=== PATIENT | female | born 1975 | race Caucasian/White ===

== ENCOUNTER → 2017-10-06 | Outpatient (CLI) | payer OTHER ==
--- NOTE | 2017-10-08 07:55 | MAMMOGRAPHY REPORT ---
BILATERAL DIGITAL SCREENING MAMMOGRAM TOMOSYNTHESIS WITH CAD: 10/06/2017 CLINICAL HISTORY: Routine screening. Patient has no complaints. TECHNIQUE: Breast tomosynthesis in addition to standard 2D mammography was performed. Current study was also evaluated with a Computer Aided Detection (CAD) system. COMPARISON: Comparison is made to exams dated: 11/16/2013 ultrasound, 11/16/2013 mammogram, and 014 mammogram - [facility]. BREAST COMPOSITION: The tissue of both breasts is extremely dense, which lowers the sensitivity of m ammography. FINDINGS: There is a 12 mm partially circumscribed and obscured mass in the 12:00 far posterior left breast, and possible adjacent area of architectural distortion, which could simply represent normal overlapping tissue. Additional spot compression tomosynthesis views and possible ultrasound are milton mmended. No other suspicious mass, architectural distortion or cluster of microcalcifications is seen. IMPRESSION: ACR BI-RADS CATEGORY 0: INCOMPLETE EVALUATION: NEED ADDITIONAL IMAGING EVALUATION The 12 mm partially circumscribed and obscured mass in the 12:00 far posterior left breast and possib le adjacent area of architectural distortion need additional imaging evaluation. The patient will be called to schedule an appointment. Approximately 10% of breast cancers are not detected with mammography. A negative mammographic report should not delay biopsy if a clinically suggestive mass is present. Chantelle Marsh M.D. ay/:10/06/2017 16:15:05 Sports Medicine Trainer: Muna ADAIR)(Tre), [facility] letter sent: Addl Imaging 0 BI-RADS Code: ACR BI-RADS Category 0: Incomplete Evaluation: Need Additional Imaging Evaluation
== END | disposition home or self-care (01) ==
LOC: C.MAMM 09:23
PROVIDERS: ATTEND Obstetrics & Gynecology
DX: Z12.31 Encounter for screening mammogram for malignant neoplasm of breast (principal); N63.20 Unspecified lump in the left breast, unspecified quadrant

== ENCOUNTER → 2017-10-15 | Outpatient (CLI) | payer OTHER ==
--- NOTE | 2017-10-15 14:55 | MAMMOGRAPHY REPORT ---
UNILATERAL LEFT DIGITAL DIAGNOSTIC MAMMOGRAM TOMOSYNTHESIS AND TARGETED LEFT ULTRASOUND: 10/15/2017 CLINICAL HISTORY: Callback from screening mammogram for possible left breast architectural distortion and left breast mass. Family history of breast cancer in her mother who had a malignant Phyllodes t umor. TECHNIQUE: Breast tomosynthesis in addition to standard 2D mammography was performed. Spot compress ion left CC and MLO 2D and tomosynthesis images were obtained. COMPARISON: Comparison is made to exams dated: 10/06/2017 mammogram, 11/16/2013 ultrasound, 11/16/2013 mammogram, and 11/10/2013 mammogram - [facility]. BREAST COMPOSITION: The tissue of the left breast is extremely dense, which lowers the sensitivity o f mammography. FINDINGS: Spot compression views demonstrate a persistent low-density oval partially circumscribed an d partially obscured 15 mm mass within the left superior breast at approximately 12:00 posteriorly. The previously described area of questionable architectural distortion in the adjacent breast on the MLO view does not persist on the additional views, with the tissue in this region having the appearan ce of normal fibroglandular tissue. Targeted ultrasound was performed of the left 11 to 1:00 breast in the region of the mammographic mas s. The background parenchymal echotexture is heterogeneous. In the left breast at 11:00, 7 cm from the nipple, there is a circumscribed anechoic mass with a few thin internal septations which measures 11 x 6 x 10 mm, which has the appearance of a benign cyst. Another adjacent smaller benign cyst wit h a thin internal septation measuring 5 mm is seen, as well as an anechoic 6 mm benign simple cyst in the left 11:00 breast, 4 cm from the nipple. The dominant cyst in the left 11:00 breast was thought to possibly correspond with the mammographic mass although was more anterior than expected for the m ammographic finding. A BB was placed on the skin at the site of this mass and repeat left CC and MLO tomosynthesis images were obtained. The repeat images show that the BB is located near the mass on both views although is a few centimeters anterior to the mass and therefore may or may not correlate. No clear sonographic correlate for the mammographic mass is seen. The mass is probably benign given the circumscribed margins, however, given that a corresponding cyst is not clearly seen on ultrasound the mass remains indeterminant for a solid mass. Given that the p atient has a strong family history of breast cancer including her mother who had a malignant Phyllode s tumor, recommend further evaluation with bilateral breast MRI. IMPRESSION: ACR BI-RADS CATEGORY 0: INCOMPLETE EVALUATION: NEED ADDITIONAL IMAGING EVALUATION, LINETTE ETED ULTRASOUND ACR BI-RADS CATEGORY 0: INCOMPLETE EVALUATION: NEED ADDITIONAL IMAGING EVALUATION 1. Persistent partially circumscribed 15 mm mass within the left 12:00 posterior breast, with a few cysts seen on ultrasound but a definite sonographic correlate was not evident. Although this may rep resent a cyst or other benign mass, it remains indeterminant and recommend further evaluation with bi lateral breast MRI, especially given the strong family history of breast cancer. 2. The possible architectural distortion seen within the left 12:00 breast has the appearance of nor mal fibroglandular tissue on the tomosynthesis images. This area can also be assessed on breast MRI. The patient has been verbally notified of the results. Approximately 10% of breast cancers are not detected with mammography. A negative mammographic report should not delay biopsy if a clinically suggestive mass is present. Vianney Vlales M.D. ah/:10/15/2017 11:43:54 Weed Eradicator: Kiana Madison, [facility] letter sent: Addl Imaging 0 BI-RADS Code: ACR BI-RADS Category 0: Incomplete Evaluation: Need Additional Imaging Evaluation Ult rasound BI-RADS: ACR BI-RADS Category 0: Incomplete Evaluation: Need Additional Imaging Evaluation
== END | disposition home or self-care (01) ==
LOC: C.MAMM 10:51
PROVIDERS: ATTEND Obstetrics & Gynecology
DX: N63.20 Unspecified lump in the left breast, unspecified quadrant (principal); N60.02 Solitary cyst of left breast

== ENCOUNTER → 2017-10-28 | Outpatient (CLI) | payer OTHER ==
[~2017-10-28] MED LIST: GADAVIST IV PRN
--- NOTE | 2017-10-29 12:41 | MAMMOGRAPHY REPORT ---
BREAST MRI OF BOTH BREASTS : 10/28/2017 CLINICAL HISTORY: Partially circumscribed mass seen within the left superior breast on recent diagnos tic workup, with a few cysts seen on ultrasound but no clear sonographic correlate was seen. Strong family history of breast cancer. COMPARISON: Comparison is made to exams dated: 10/15/2017 mammogram, 10/06/2017 mammogram, 11/16/2013 u ltrasound, 11/16/2013 mammogram, and 11/10/2013 mammogram - [facility]. Technique: The patient was placed prone in a dedicated breast imaging coil. Precontrast axial T1-snow ghted, axial T2-weighted fat saturation, and axial T1-weighted fat saturation images were obtained. After the administration of 7 mL of Gadavist IV contrast, sequential T1-weighted fat saturation image s were obtained. Subtraction images were obtained of the dynamic contrast enhanced sequences, and 3- D reformations were performed. The JETME software was used for kinetic analysis. Findings: There is moderate to marked background parenchymal enhancement involving bilateral breasts, which red uces the sensitivity of the exam. Multiple small T2 hyperintense, nonenhancing masses are seen scatt ered in bilateral breasts, consistent with cysts. There are no suspicious enhancing masses or areas of abnormal non-mass enhancement within the left superior posterior breast in the region of the parti ally circumscribed mass seen on the recent mammograms. One T2 hyperintense, nonenhancing 8 mm mass s een within the left 11:30 breast middle depth is consistent with a cyst, and is felt to correspond wi th the partially circumscribed mammographic mass as well as the cyst seen on the recent ultrasound ex am (series 4 image 18). No suspicious MRI abnormality is seen in the region of the questionable arch itectural distortion within the left superior breast which effaced on the additional spot compression mammographic views; therefore, the finding is benign. In the left superior subareolar breast middle depth is an oval enhancing 6 mm circumscribed mass, which demonstrates a benign type persistent kine tic pattern and is probably benign and likely represents a fibroadenoma (series [id number] image 65). The remainder of both breasts are negative, with no suspicious masses or areas of abnormal non-mass enha ncement seen. There is no evidence of axillary adenopathy. The chest wall structures are negative. Visualized por tions of the extramammary soft tissues are grossly unremarkable. IMPRESSION: ACR-BI-RADS CATEGORY 3: PROBABLY BENIGN 1. No suspicious abnormality at the site of the partially circumscribed mass in the left superior br east seen mammographically. Benign cysts are seen bilaterally, one of which corresponds with the christy mographic mass. Given the lack of a corresponding suspicious finding, the finding is considered sameer gn. 2. Incidental circumscribed enhancing 6 mm mass in the left superior subareolar breast, which is pro bably benign and likely represents a fibroadenoma. Recommend follow-up bilateral breast MRI in 6 mon ths to confirm stability given that the mass is newly visualized on imaging. 3. The remainder of both breasts demonstrate no MRI evidence of malignancy. The results were discussed with the patient over the telephone on 10/28/2017. Vianney Valles M.D. ah/:10/28/2017 16:35:26 Rubber Down: mold yarn supervisor, [facility] letter sent: Follow Up Recommended 3 BI-RADS Code: ACR-BI-RADS Category 3: Probably Benign
== END | disposition home or self-care (01) ==
LOC: C.MRI 06:54
PROVIDERS: ATTEND Obstetrics & Gynecology
DX: R92.2 Inconclusive mammogram (principal); N63.42 Unspecified lump in left breast, subareolar; N60.01 Solitary cyst of right breast; N60.02 Solitary cyst of left breast